=== PATIENT | female | born 1985 | race Caucasian/White ===

== ENCOUNTER 2016-11-19 09:48 | Emergency (ER) | payer OTHER ==
[~2016-11-19] VITALS: Ht 170.2 cm; Wt 124.2 kg
[2016-11-19] MEDS ORDERED: SODIUM CHLORIDE 0.9% 1,000 ML IV ONE (10:13)
[2016-11-19] MEDS ORDERED: ONDANSETRON 2MG/ML, 2ML IVPush ONE (10:30)
[2016-11-19] MEDS ORDERED: MORPHINE SULFATE 4 MG/ML, 1ML IVPush PRN (10:30)
[2016-11-19] MEDS ORDERED: SODIUM CHLORIDE 0.9% 1,000ML IVBOLUS ONE (10:30)
[2016-11-19 10:39] LABS: HEMOGLOBIN 14.3 g/dL (11.7-16.4); WHITE BLOOD COUNT 8.7 x10^3/uL (3.4-10)
[2016-11-19] MEDS ORDERED: ONDANSETRON 2MG/ML, 2ML ONE (11:07)
[2016-11-19] MEDS ORDERED: MORPHINE SULFATE 4 MG/ML, 1ML ONE (11:07)
[2016-11-19 11:42] LABS: BLOOD UREA NITROGEN 9 mg/dL (7-18)
[2016-11-19 12:20] LABS: PATH.CAST-FLAG NOT PRESENT; SPERM-FLAG NOT PRESENT; SRC-FLAG NOT PRESENT; XTAL-FLAG NOT PRESENT; YLC-FLAG NOT PRESENT
[2016-11-19 12:36] VITALS: BP 113/51
== END 2016-11-19 13:26 | disposition home or self-care (01) ==
LOC: ED 10:18
DX: N13.2 Hydronephrosis with renal and ureteral calculous obstruction (principal); N20.2 Calculus of kidney with calculus of ureter
CPT/HCPCS: 36415; 74176; 80048; 81001; 82040; 84703; 85025; 87086; 96361; 96374; 96375; 99285; J2405; J7030

== ENCOUNTER 2017-03-07 15:56 | Emergency (ER) | payer OTHER ==
[~2017-03-07] VITALS: Ht 170.2 cm; Wt 121.2 kg
[2017-03-07 16:08] VITALS: BP 149/98
== END 2017-03-07 18:54 | disposition home or self-care (01) ==
LOC: ED 18:15
DX: M79.646 Pain in unspecified finger(s) (principal)
CPT/HCPCS: 99281

== ENCOUNTER 2020-09-24 11:03 | Emergency (ER) | payer OTHER ==
[~2020-09-24] VITALS: Ht 170.2 cm; Wt 122.7 kg
[2020-09-24 12:00] VITALS: BP 123/43
--- NOTE | 2020-09-24 12:23 | NUR ---
ERPA AT BEDSIDE FOR EVALUATION.
--- NOTE | 2020-09-24 12:29 | NUR ---
PATIENT WHEELED BACK FROM TRIAGE WITH CHIEF C/O LOW BACK PAIN THAT STARTED YESTERDAY AROUND 5 PM. PER PATIENT SHE WAS BENDING DOWN IN THE KITCHEN TO PICK SOMETHING UP AND FELT LIKE 'I THREW OUT MY BACK." PATIENT UNABLE TO BEAR WEIGHT OR STAND UP STRAIGHT DUE TO PAIN. DENIES LOSS OF BLADDER OR BOWEL CONTROL. SIGNIFICANT OTHER AT BEDSIDE, CALL LIGHT WITHIN REACH.
[2020-09-24] MEDS ORDERED: KETOROLAC 30 MG/1 ML IM ONE ×2 (12:30→14:30)
[2020-09-24] MEDS ORDERED: DIAZEPAM 5 MG TABLET PO ONE (12:30)
[2020-09-24] MEDS ORDERED: DIAZEPAM 5 MG TABLET ONE (12:34)
[2020-09-24] MEDS ORDERED: KETOROLAC 30 MG/1 ML ONE ×2 (12:34→14:39)
[2020-09-24] MEDS ORDERED: ONDANSETRON ODT 4 MG ONE (13:29)
[2020-09-24] MEDS ORDERED: HYDROmorphone 2 MG/ML, 1ML ONE (13:29)
[2020-09-24] MEDS ORDERED: ONDANSETRON ODT 4 MG PO ONE (13:30)
[2020-09-24] MEDS ORDERED: HYDROmorphone 1 MG/ML, 1ML INJ IM ONE (13:30)
--- NOTE | 2020-09-24 13:36 | NUR ---
PATIENT MEDICATED PER eMAR, STATES "LONG I'M LAYING DOWN MY PAIN IS A 4/10, BUT WHEN I TRY TO SIT UP IT GOES TO A 10/10." SIGNIFICANT OTHER AT BEDSIDE, CALL LIGHT WITHIN REACH.
--- NOTE | 2020-09-24 14:26 | NUR ---
ERMD AT BEDSIDE TO DISCUSS POC.
[2020-09-24] MEDS ORDERED: DIAZEPAM 5 MG/ML, 10ML VIAL IM ONE (14:30)
[2020-09-24] MEDS ORDERED: DIAZEPAM 5 MG/ML, 2ML ONE (14:39)
--- NOTE | 2020-09-24 15:30 | NUR ---
Patient given discharge instructions and prescription and they have confirmed that they understand the instructions. Patient wheeled to private vehicle with significant other. NAD, all questions answered appropriately, denies additional needs at this time. No personal belongings left in room after discharge.
== END 2020-09-24 15:31 | disposition home or self-care (01) ==
LOC: ED 14:30
DX: S39.012A Strain of muscle, fascia and tendon of lower back, initial encounter (principal); X58.XXXA Exposure to other specified factors, initial encounter; Y93.89 Activity, other specified; Y92.89 Other specified places as the place of occurrence of the external cause; Y99.8 Other external cause status
CPT/HCPCS: 96372; 99284; J1170; J1885; J3360; Q0162